=== PATIENT | male | born 1975 | race Caucasian/White ===

== ENCOUNTER 2023-03-26 19:09 | Emergency (ER) | payer OTHER, SELFPAY ==
[2023-03-26 19:15] VITALS: BP 138/75; PULSE 71; RESP 14; TEMP 36.5; O2SAT 99; BMI 47.0
--- NOTE | 2023-03-26 19:46 | CT_ITS ---
[address] [address] Patient Name: GENNARO CAN MRN: [id number] date: 1975 Sex: M Assigned Patient Location: Current Patient Location: Accession/Order Number: [id number] Exam Date: 03/26/2023 20:09 Report Date: 03/26/2023 21:50 At the request of: JUDITH JACOBO Procedure: CT head/brain wo con CT head without contrast, 03/26/2023. HISTORY: Hearing loss on left. Tinnitus. COMPARISON: None. TECHNIQUE: Noncontrast axial CT images obtained through the head. Reconstructions obtained in the sagittal and coronal planes. Dose reduction techniques were achieved by using automated exposure control and/or adjustment of mA and/or kV according to patient size and/or use of iterative reconstruction technique. FINDINGS: Paranasal sinuses clear. Mastoid air cells clear. Skull base intact. No skull lesion. Middle ear cavities clear. Orbital contents normal. Extracranial soft tissue structures unremarkable. Ventricles normal in size. No hydrocephalus. No mass effect. No shift of midline. No acute hemorrhage. No mass. Rosas matter and white matter differentiation intact. IMPRESSION: Normal CT of the head. Electronically authenticated by: VINAYAK DIAZ Date: 03/26/2023 21:50
[2023-03-26 19:51] LABS: Glucometer 197 mg/dL (74-106)
[2023-03-26 19:58] VITALS: RESP 18
--- NOTE | 2023-03-26 20:01 | PC.NURSE ---
Per Physician left ear drum bulging and red but intact.
--- NOTE | 2023-03-26 21:20 | ED_ITS ---
HPI - General Adult General Chief complaint: Ear Stated complaint: LT EAR HEARING LOSS Time Seen by Provider: 03/26/23 19:29 Source: patient Mode of arrival: walk-in Limitations: no limitations History of Present Illness HPI narrative: LEFT EAR PAIN FOLLOWED BY DECREASE IN HEARING Patient said that he suffers from tinnitus. He frequently has buzzing or roaring in his ears, especially the left ear. He said that about 15-20 minutes [employer] he developed pain in the left ear and felt a pop and since then his hearing in the left ear is decreased. He previously suffered a head injury from a fall and they are wondering if this could be related. The told em that the patient's sister had a cerebral aneurysm and she is concerned that it might be something like that. The patient does not have headache. he said that loud noises increase his left ear pain. Related Data Previous Rx's Medication Instructions Recorded azithromycin 250 mg tablet 250 mg PO DAILY 4 days #4 tabs 03/26/23 Allergies Allergy/AdvReac Type Severity Reaction Status Date / Time oxycodone Allergy Verified 03/26/23 19:21 Exam Narrative Exam Narrative: Nurses notes and vital signs reviewed and patient is not hypoxic. afebrile General: Well-appearing and in no apparent distress. Skin: Warm, dry, no pallor noted. No rash to left face or around left ear. Head: Normocephalic, atraumatic. Neck: Supple, non-tender. No carotid bruits Eye: Pupils are equal, round and EOMI. No scleral icterus. Ears, Nose, Mouth, and Throat: Left TM erythematous with bulging and injection but no perforation. Right TM normal. No nasal mucosal hypertrophy. Oral mucosa is moist, no posterior oropharynx erythema, uvula is mid-line Cardiovascular: Regular Rate and Rhythm without murmur, gallop or rub. Respiratory: No accessory muscle use or respiratory distress. Lungs are clear to auscultation, no wheezing, rales or rhonchi Musculoskeletal: normal ROM, Neurological: A&O x4. No cranial nerve dysfunction observed. No truncal ataxia. Moves all extremities. Sensation intact. Psychiatric: Cooperative and interactive. Normal mood and affect. Constitutional Vital Signs - 24 hr 03/26/23 19:15 03/26/23 19:58 Temperature 97.7 F Pulse Rate [Monitor] 71 Respiratory Rate 14 18 Blood Pressure [Left Arm] 138/75 H Pulse Oximetry 99 Oxygen Delivery Method Room Air Course Vital Signs Vital signs: Vital Signs Temperature 97.7 F 03/26/23 19:15 Pulse Rate 71 03/26/23 19:15 Respiratory Rate 14 03/26/23 19:15 Blood Pressure 138/75 H 03/26/23 19:15 Pulse Oximetry 99 03/26/23 19:15 Oxygen Delivery Method Room Air 03/26/23 19:15 Temperature 97.7 F 03/26/23 19:15 Pulse Rate 71 03/26/23 19:15 Respiratory Rate 18 03/26/23 19:58 Blood Pressure 138/75 H 03/26/23 19:15 Pulse Oximetry 99 03/26/23 19:15 Oxygen Delivery Method Room Air 03/26/23 19:15 Medical Decision Making MDM Narrative Medical decision making narrative: patient and concerned about intracranial pathology, so head CT without contrast obtained. It was unremarkable and the patient was given reassurance. Exam consistent with left otitis media. Patient given first dose of antibiotics in the ED and then was discharged home with prescriptions for zyrtec D to decrease fluid production and enough azithromycin to complete the course. Motrin and tylenol recommended for pain and ENT follow up recommended. Lab Data Labs: Lab Results 03/26/23 Range/Units 19:50 POC Glucose 197 H (74-106) mg/dL Imaging Data CT scan - head: Radiologist's impression: Patient Name: GENNARO CAN ? MRN: [id number]? ? date: 1975? ? Sex: M Assigned Patient Location: ER Current Patient Location: ER Accession/Order Number: [id number] Exam Date: 03/26/2023? 20:09? ? Report Date: 03/26/2023? 21:30 ? At the request of: JUDITH? ODALIS? ? Procedure:? CT head/brain wo con ? CT head without contrast, 03/26/2023. ? HISTORY: Hearing loss on left. Tinnitus. ? COMPARISON: None. ? TECHNIQUE: Noncontrast axial CT images obtained through the head. Reconstructions obtained in the sagittal and coronal planes. Dose reduction techniques were achieved by using automated exposure control and/or adjustment ? of mA and/or kV according to patient size and/or use of iterative reconstruction technique. ? FINDINGS: Paranasal sinuses clear. Mastoid air cells clear. Skull base intact. ? No skull lesion. Middle ear cavities clear. Orbital contents normal. Extracranial soft tissue structures unremarkable. Ventricles normal in size. No hydrocephalus. No mass effect. No shift of midline. No acute hemorrhage. No mass. Rosas matter and white matter differentiation intact. ? IMPRESSION: ? Normal CT of the head. ? ? Electronically authenticated by: ARIAN DIAZ ? Date: 03/26/2023? 21:30 Discharge Plan Discharge Chief Complaint: Ear Clinical Impression: Otitis media Patient Disposition: Home, Self-Care Time of Disposition Decision: 21:25 Condition: Good Mode of Transportation: Private Vehicle Prescriptions / Home Meds: New azithromycin 250 mg tablet 250 mg PO DAILY 4 Days Qty: 4 0RF Rx Instructions: start on day 2 of therapy Instructions: Ear Infection (ED) Stand Alone Forms: Portal Instructions Referrals: Citlali Krueger MD [Physician] - 1 week Discharge Date/Time: 03/26/23 21:35
[2023-03-26] MEDS: AZITHROMYCIN 250 MG TABLET 500 MG PO (21:31)
== END 2023-03-26 21:35 | disposition home or self-care (01) ==
PROVIDERS: Emergency Provider Emergency Medicine
DX: H66.92 Otitis media, unspecified, left ear (principal)
CPT/HCPCS: 36415; 70450; 99284